=== PATIENT | male | born 1955 | race Caucasian/White ===

== ENCOUNTER → 2017-02-26 | Outpatient (CLI) | payer BC | LOC: RT 09:35 | PROVIDERS: ATTEND Psychiatry & Neurology Neurology | DX: R56.9 Unspecified convulsions (principal) | CPT/HCPCS: 93010; 95819 ==

== ENCOUNTER → 2017-03-04 | Outpatient (CLI) | payer BC ==
[~2017-03-04] MED LIST: NS 100 ML IV 100 ML IV ONE
[2017-03-04 09:09] LABS: CHOL/HDL RATIO 8.1 (0.0-5.0); CREATININE 0.82 mg/dL (0.70-1.30)
--- NOTE | 2017-03-04 15:36 | CT ---
HISTORY: TIA, recent episode of right-sided numbness/tingling and speech difficulty/memory loss Study: CT angiography of the head Comparison: None Technique: Multiple axial images of the head obtained before and after the administration of IV contrast using CTA protocol. 3D reconstructions were performed utilizing radial maximum intensity projection imagi ng.Dose reduction techniques including Automated Exposure Control (AEC) and adjustment of mA and kV were utilized. Findings: The non-contrasted exam demonstrates normal appearance of the brain parenchyma for patient's age. No evidence of acute hemorrhage, midline shift, mass effect or abnormal extra-axial fluid collection. The ventricles appear normal in size and configuration. The soft tissues are unremarkable. The visua lized sinuses are clear. There are no gross parenchymal abnormalities seen in the arterial phase. There is no evidence of ane urysm, vascular malformation, or major branch vessel occlusion. The left vertebral artery small in c aliber and terminates at the PICA. There is a hypoplastic right M1 segment. There is a origin of the right posterior cerebral artery. The visualized internal carotid arteries are patent without significant stenosis. No dissection identified. IMPRESSION: 1. No evidence of aneurysm or major vessel occlusion. Reported By:
== END ==
LOC: RAD 08:38
PROVIDERS: ATTEND Psychiatry & Neurology Neurology
DX: G45.1 Carotid artery syndrome (hemispheric) (principal)
CPT/HCPCS: 36415; 70496; 80061; 82565; 84520; A4222

== ENCOUNTER → 2017-03-06 | Outpatient (CLI) | payer BC ==
--- NOTE | 2017-03-06 12:53 | CT ---
CT ANGIOGRAPHY NECK CLINICAL HISTORY: 61-year-old male with history of TIA and dizziness. COMPARISON: None. TECHNIQUE: Multiple axial CT images were obtained from the skull base to the aortic arch prior to a nd following the administration of IV contrast and reformatted in the sagittal and coronal planes. FINDINGS: The take-off of the great vessels is conventional. The origins of the common carotid and v ertebral arteries are patent. There is no evidence of dissection or high grade stenosis of the carot id or vertebral systems. Right dominant vertebral arterial system with hypoplastic left vertebral ar keeley along its course which terminates and to a comment left AICA/PICA trunk. Basilar artery is norm al appearance. Non flow limiting atherosclerotic plaque of the bilateral carotid bifurcations. Lumin al regularity of no hemodynamic significance within the cavernous portions of the internal carotid a rteries bilaterally secondary to atherosclerotic plaque. The soft tissues of the neck are within normal limits. Scattered paraseptal and centrilobular emphys ematous change. Multilevel degenerative disease. At C2-C3: Severe left facet arthropathy with mild uncovertebral joint hypertrophy without central ca nal stenosis. Mild left neural foraminal stenosis. At C3-C4: Severe left facet hypertrophy with moderate to severe uncovertebral joint hypertrophy and produces moderate to severe left neural foraminal stenosis. At C4-C5: Central disk osteophyte narrows canal to approximately 10 mm. Mild facet and uncovertebral joint hypertrophy without neuroforaminal stenosis. At C5-C6: Severe uncovertebral joint hypertrophy with spurring with mild facet arthropathy produces moderate left neural foraminal stenosis. Central disk osteophyte narrows canal to approximately 8.8 mm. At C6-C7: Significant loss of disc space with severe uncovertebral joint hypertrophy with spurring w ith central disc osteophyte narrowing canal to approximately 7.8 mm. No neural foraminal stenosis. At C7-T1: No central canal or neural foraminal stenosis. IMPRESSION: 1. No high-grade stenosis, complete occlusion, dissection, aneurysm or vascular malformation within the carotid or vertebral arterial systems. 2. Multilevel degenerative change as described above. Reported By:
== END ==
LOC: RAD 09:44
PROVIDERS: ATTEND Psychiatry & Neurology Neurology
DX: G45.1 Carotid artery syndrome (hemispheric) (principal)
CPT/HCPCS: 70498; A4222

== ENCOUNTER → 2017-03-13 | Outpatient (CLI) | payer BC ==
--- NOTE | 2017-03-13 13:01 | MRI ---
STUDY: MRI OF THE BRAIN WITHOUT GADOLINIUM History: TIA. Headaches. Comparison: Head CT dated March 04, 2017. Technique: Multiplanar multi-sequence MRI of the brain was obtained utilizing standard departmental protocol. Sagittal and axial T1, axial T2, FLAIR, diffusion (DWI/ADC) images through the brain were performed. Findings: The sulci, cisterns, and ventricles are age appropriate. There is no evidence of acute ter ritorial infarction, hemorrhage, mass, mass effect or midline shift. There are no abnormal intra-axi al or extra-axial fluid collections. The major intracranial vascular flow voids are intact. IMPRESSION: 1. No evidence of acute intracranial abnormality. Reported By:
== END ==
LOC: RAD 10:33
PROVIDERS: ATTEND Psychiatry & Neurology Neurology
DX: G45.1 Carotid artery syndrome (hemispheric) (principal)
CPT/HCPCS: 70551